=== PATIENT | female | born 1990 | race Caucasian/White ===

== ENCOUNTER 2016-09-11 03:55 | Emergency (ER) | payer OTHER ==
[~2016-09-11] VITALS: Ht 165.1 cm; Wt 76.7 kg
[~2016-09-11 03:55] MED LIST: CYCL10TA2 PO; IBUP-1060 PO; IBUP200T43 PO
[2016-09-11] MEDS ORDERED: KETOROLAC 15 MG/ML VIAL. IV ONE (04:30)
[2016-09-11] MEDS ORDERED: IV NORMAL SALINE 1000ML BAG 1,000 ML IV ONE (04:30)
[2016-09-11] MEDS ORDERED: ONDANSETRON PF 4 MG/2 ML VIAL. IV ONE (04:30)
[2016-09-11 04:34] LABS: BASO # 0.1 x10^3/uL (0.0-0.2); BASO % 1 % (0-3); EOS % 2 % (0-3); HEMATOCRIT 34.3 % (36.0-47.0); HEMOGLOBIN 11.6 g/dL (12.0-15.5); LYMPH # 1.8 x10^3/uL (1.0-4.8); LYMPH % 17 % (24-48); MEAN CORPUSCULAR HEMOGLOBIN 32 pg (25-35); MEAN CORPUSCULAR HGB CONC 34 g/dL (31-37); MEAN CORPUSCULAR VOLUME 94 fL (79-100); MONO % 6 % (0-9); NEUT % 74 % (31-73); PLATELET COUNT 278 x10^3/uL (140-400); RED BLOOD COUNT 3.65 x10^6/uL (3.50-5.40); RED CELL DISTRIBUTION WIDTH 16.3 % (11.5-14.5); WHITE BLOOD COUNT 10.8 x10^3/uL (4.0-11.0)
[2016-09-11 04:44] LABS: CALCIUM 8.4 mg/dL (8.5-10.1); CREATININE 0.7 mg/dL (0.6-1.0); GFR 100.4; POTASSIUM 4.3 mmol/L (3.5-5.1)
[2016-09-11 04:50] LABS: ALBUMIN 2.7 g/dL (3.4-5.0); ALBUMIN/GLOBULIN RATIO 0.6 (1.0-1.7); TOTAL BILIRUBIN 0.2 mg/dL (0.2-1.0)
[2016-09-11 04:58] LABS: BILIRUBIN,URINE NEGATIVE (NEG); GLUCOSE,URINE NEGATIVE (NEG); NITRITE,URINE NEGATIVE (NEG); PH,URINE 6.5; PROTEIN,URINE 30 mg/dL (NEG-TRACE); UROBILINOGEN,URINE 0.2 mg/dL (0.2 mg/dL)
[2016-09-11 05:15] LABS: BACTERIA,URINE FEW /HPF (0-FEW); RBC,URINE >40 /HPF (0-2); WBC,URINE OCC /HPF (0-4)
[2016-09-11 05:16] LABS: SQUAMOUS EPITHELIAL CELL,UR MOD /LPF
[2016-09-11 05:36] VITALS: BP 116/75
--- NOTE | 2016-09-11 05:38 | RAD ---
Abdominal ultrasound right upper quadrant: Reason for examination: Right upper quadrant pain. No abnormality seen at the pancreas. Gallbladder shows no cholelithiasis, sludge or wall thickening. Common bile duct is normal in caliber at 2.8 mm. No abnormality seen at the inferior vena cava. The liver is homogeneous and normal in size with no focal lesion. The right kidney measures 11.5 x 4.3 x 5.7 cm in greatest dimension with no mass or hydronephrosis. IMPRESSION: No focal abnormality seen in the right upper quadrant. Specifically no gallbladder disease is present. Electronically signed by: Antonieta Sanchez MD (09/11/2016 5:35 AM) [facility]
[2016-09-11] MEDS ORDERED: ONDA4TAB10 SL (05:45)
--- NOTE | 2016-09-11 05:45 | PHYS DOC ---
Past Medical History Past Medical History: Anemia Past Surgical History: Other Additional Past Surgical Histo: LUMPECTOMY Alcohol Use: None Drug Use: None Adult General Chief Complaint Chief Complaint: ABDOMINAL PAIN HPI HPI Patient is a 26 year old female who presents here today complaining of midepigastric abdominal pain radiating to her right upper quadrant is been going on for approximately one day now. Patient reports she's had nausea with no vomiting. Reports pain is intermittent. Patient has any fevers shakes chills dysuria frequency or urgency. Patient pressure less by mouth intake was 5 PM when she ate a turkey sandwich. Patient reports the pain started this evening afterwards approximately 8 PM. Patient has no history of hypertension diabetes liver longer kidney problems. Patient has had no abdominal surgeries. Patient has not had no known drug allergies. Patient does not smoke drink or do any drugs. Patient is approximately 2 weeks. Patient is currently breast- feeding. Patient's physical exam was significant for tenderness to palpation in her midepigastric area greater than her right upper quadrant which is greater than her left upper quadrant. Patient has no rebound or guarding. No psoas or obturator signs. No Breaux's or McBurney's point tenderness. Patient has no signs or symptoms of be consistent with an acute surgical abdomen. Patient's labs were unremarkable in the ER. Patient had ultrasound of right upper quadrant which revealed a normal gallbladder. Review of Systems Review of Systems Constitutional: Denies fever or chills [] Eyes: Denies change in visual acuity, redness, or eye pain [] All other review systems are negative except as documented in the history of present illness portion. Current Medications Current Medications Current Medications Medications (Trade) Dose Ordered Sig/Adriana Start Time Stop Time Status Last Admin Dose Admin Ketorolac Tromethamine (Toradol) 15 mg 1X ONCE 09/11/16 04:30 09/11/16 04:31 DC 09/11/16 04:40 15 MG Ondansetron HCl (Zofran) 4 mg 1X ONCE 09/11/16 04:30 09/11/16 04:31 DC 09/11/16 04:39 4 MG Sodium Chloride 1,000 ml @ 1,000 mls/hr 1X ONCE 09/11/16 04:30 09/11/16 05:29 DC 09/11/16 04:39 1,000 MLS/HR Allergies Allergies Allergies Coded Allergies Type Severity Reaction Last Updated Verified No Known Drug Allergies 07/01/15 No Physical Exam Physical Exam Constitutional: Denies fever or chills [] Eyes: Denies change in visual acuity, redness, or eye pain [] All other review systems are negative except as documented in the history of present illness portion. Constitutional: Well developed, well nourished, no acute distress, non-toxic appearance. [] HENT: Normocephalic, atraumatic, bilateral external ears normal, oropharynx moist, no oral exudates, nose normal. [] Eyes: PERRLA, EOMI, conjunctiva normal, no discharge. [] Neck: Normal range of motion, no tenderness, supple, no stridor. [] Cardiovascular:Heart rate regular rhythm, Lungs & Thorax: Bilateral breath sounds clear to auscultation [] Abdomen: Bowel sounds normal, soft, no tenderness, no masses, no pulsatile masses. [] Skin: Warm, dry, no erythema, no rash. [] Back: No tenderness, no CVA tenderness. [] Extremities: No tenderness, no cyanosis, no clubbing, ROM intact, no edema. [] Neurologic: Alert and oriented X 3, normal motor function, normal sensory function, no focal deficits noted. [] Psychologic: Affect normal, judgement normal, mood normal. [] Current Patient Data Vital Signs Vital Signs Date Time Temp Pulse Resp B/P (MAP) Pulse Ox O2 Delivery O2 Flow Rate FiO2 09/11/16 04:00 98.1 74 18 119/64 (82) 96 Room Air 98.1 Lab Values Laboratory Tests Test 09/11/16 04:20 09/11/16 04:43 White Blood Count 10.8 x10^3/uL (4.0-11.0) Red Blood Count 3.65 x10^6/uL (3.50-5.40) Hemoglobin 11.6 g/dL (12.0-15.5) L Hematocrit 34.3 % (36.0-47.0) L Mean Corpuscular Volume 94 fL (79-100) Mean Corpuscular Hemoglobin 32 pg (25-35) Mean Corpuscular Hemoglobin Concent 34 g/dL (31-37) Red Cell Distribution Width 16.3 % (11.5-14.5) H Platelet Count 278 x10^3/uL (140-400) Neutrophils (%) (Auto) 74 % (31-73) H Lymphocytes (%) (Auto) 17 % (24-48) L Monocytes (%) (Auto) 6 % (0-9) Eosinophils (%) (Auto) 2 % (0-3) Basophils (%) (Auto) 1 % (0-3) Neutrophils # (Auto) 8.0 x10^3uL (1.8-7.7) H Lymphocytes # (Auto) 1.8 x10^3/uL (1.0-4.8) Monocytes # (Auto) 0.7 x10^3/uL (0.0-1.1) Eosinophils # (Auto) 0.3 x10^3/uL (0.0-0.7) Basophils # (Auto) 0.1 x10^3/uL (0.0-0.2) Sodium Level 141 mmol/L (136-145) Potassium Level 4.3 mmol/L (3.5-5.1) Chloride Level 106 mmol/L (98-107) Carbon Dioxide Level 25 mmol/L (21-32) Anion Gap 10 (6-14) Blood Urea Nitrogen 13 mg/dL (7-20) Creatinine 0.7 mg/dL (0.6-1.0) Estimated GFR (Cockcroft-Gault) 100.4 BUN/Creatinine Ratio 19 (6-20) Glucose Level 91 mg/dL (70-99) Calcium Level 8.4 mg/dL (8.5-10.1) L Total Bilirubin 0.2 mg/dL (0.2-1.0) Aspartate Amino Transferase (AST) 31 U/L (15-37) Alanine Aminotransferase (ALT) 27 U/L (14-59) Alkaline Phosphatase 147 U/L (46-116) H Total Protein 7.0 g/dL (6.4-8.2) Albumin 2.7 g/dL (3.4-5.0) L Albumin/Globulin Ratio 0.6 (1.0-1.7) L Lipase 106 U/L (73-393) Urine Collection Type Unknown Urine Color Yellow Urine Clarity Cloudy Urine pH 6.5 Urine Specific [place] 1.025 Urine Protein 30 mg/dL (NEG-TRACE) Urine Glucose (UA) Negative mg/dL (NEG) Urine Ketones (Stick) Negative mg/dL (NEG) Urine Blood Large (NEG) Urine Nitrite Negative (NEG) Urine Bilirubin Negative (NEG) Urine Urobilinogen Dipstick 0.2 mg/dL (0.2 mg/dL) Urine Leukocyte Esterase Small (NEG) Urine RBC >40 /HPF (0-2) Urine WBC Occ /HPF (0-4) Urine Squamous Epithelial Cells Mod /LPF Urine Bacteria Few /HPF (0-FEW) Urine Mucus Marked /LPF Laboratory Tests 09/11/16 04:20 Laboratory Tests 09/11/16 04:20 EKG EKG [] Radiology/Procedures Radiology/Procedures [] Course & Med Decision Making Course & Med Decision Making Pertinent Labs and Imaging studies reviewed. (See chart for details) [] Dragon Disclaimer Dragon Disclaimer This electronic medical record was generated, in whole or in part, using a voice recognition dictation system. Departure Departure Impression: Primary Impression: Abdominal pain Disposition: HOME, SELF-CARE Condition: IMPROVED Referrals: NIKI HOOD DO (PCP) Patient Instructions: Abdominal Pain (Nonspecific) Scripts Ondansetron (ZOFRAN ODT) 4 Mg Tab.rapdis 1 TAB SL Q6HRS Y for NAUSEA, #12 TAB Prov: STAR TAM MD 09/11/16 STAR TAM MD Sep 11, 2016 05:45
== END 2016-09-11 05:56 | disposition home or self-care (01) ==
LOC: ER 03:55
DX: O90.89 Other complications of the puerperium, not elsewhere classified (principal); R10.13 Epigastric pain; R10.11 Right upper quadrant pain; R11.0 Nausea
CPT/HCPCS: 36415; 76705; 80053; 81001; 83690; 85027; 87086; 96361; 96374; 96375; 99285; J1885; J2405; J7030